=== PATIENT | male | born 1950 | race Caucasian/White ===

== ENCOUNTER 2017-10-07 11:03 | Day surgery (SDC) | payer MEDICARE, OTHER ==
[~2017-10-07 11:03] MED LIST: ROCURONIUM 50 MG INJ; SUGAMMADEX SODIUM 200 MG/2 ML VIAL IV
[2017-10-07] MEDS ORDERED: LACTATED RINGER'S 1,000 ML IV (12:30)
[2017-10-07] MEDS ORDERED: BACITRACIN/POLYMYXIN 28.35 GM OINT TOP (12:53)
[2017-10-07] MEDS ORDERED: FENTAnyl 50 MCG/ML VIAL ×2 (13:12→15:26)
[2017-10-07] MEDS ORDERED: ROPIVACAINE 0.5 % 30 ML VIAL (13:12)
[2017-10-07] MEDS ORDERED: MIDAZOLAM 1 MG/ML 2 ML INJ (13:12)
[2017-10-07] MEDS ORDERED: HYDROmorphONE 1 MG/5 ML IV SYRINGE IV ×3 (13:30)
[2017-10-07] MEDS ORDERED: ONDANSETRON 4 MG INJ IV (13:30)
[2017-10-07] MEDS ORDERED: FENTAnyl 50 MCG/ML VIAL IV ×2 (13:30)
[2017-10-07] MEDS ORDERED: MEPERIDINE 25 MG INJ IV (13:30)
[2017-10-07] MEDS ORDERED: morphine 2 MG INJ IV (13:30)
[2017-10-07] MEDS ORDERED: METOCLOPRAMIDE 10 MG INJ IV (13:30)
[2017-10-07] MEDS ORDERED: DIPHENHYDRAMINE 50 MG INJ IV (13:30)
[2017-10-07] MEDS ORDERED: PROPOFOL 20 ML (13:47)
[2017-10-07] MEDS ORDERED: LIDOCAINE 100 MG SYRINGE (13:47)
[2017-10-07] MEDS ORDERED: ROCURONIUM 50 MG INJ (13:47)
[2017-10-07] MEDS ORDERED: CEFAZOLIN 1 GM INJ (13:47)
[2017-10-07] MEDS ORDERED: SUCCINYLCHOLINE CHLORIDE 100 MG/5 ML SYG IV (13:47)
[2017-10-07] MEDS: CA CHLORIDE 10% 10 ML SYRINGE (14:43)
[2017-10-07] MEDS: BACITRACIN/POLYMYXIN 28.35 GM OINT TOP (14:43)
[2017-10-07] MEDS: THROMBIN 5000 UNIT VIAL (14:44)
== END 2017-10-07 17:58 | disposition home or self-care (01) ==
LOC: SDS 11:03
DX: M25.872 Other specified joint disorders, left ankle and foot (principal); M25.372 Other instability, left ankle; M65.9 Synovitis and tenosynovitis, unspecified; M94.272 Chondromalacia, left ankle and joints of left foot
CPT/HCPCS: 27698; 73610; 82306